=== PATIENT | female | born 1940 | race Hispanic/Latino ===

== ENCOUNTER 2017-02-17 12:33 | Emergency (ER) | payer MEDICARE ==
[2017-02-17] MEDS ORDERED: TORADOL IM ONE (14:20)
[2017-02-17] MEDS ORDERED: TYLENOL PO ONE (14:20)
[2017-02-17] MEDS ORDERED: VALIUM PO ONE (15:00)
--- NOTE | 2017-02-17 15:14 | Emergency Department Report ---
ED General Adult HPI - General Chief complaint: Neck Pain/Injury Stated complaint: NECK PAIN Time Seen by Provider: 02/17/17 14:19 Source: patient Mode of arrival: Ambulatory Limitations: No Limitations - History of Present Illness Initial comments: Patient is a 76 -year-old female past medical history of chronic kidney disease stage III and diabetes who presents with neck pain. Patient's neck pain is so. On the left side of her neck and doesn't radiate it's an achy type of pain nothing makes it better or worse. She states the pain as a 6 out of 10 she states that is constant. She is tried different positions and it occurred a couple hours when she woke up. Patient denies having pain or any shortness of breath. She denies having any nausea or vomiting. She states that she hasn't been able to get much sleep due to this pain. Severity scale (0 -10): 9 - Related Data Home Medications Medication Instructions Recorded Confirmed Last Taken Lisinopril [Zestril] 20 mg PO QDAY 06/02/15 06/02/15 06/01/15 Pregabalin [Lyrica] 75 mg PO QDAY 06/02/15 06/02/15 06/01/15 Previous Rx's Medication Instructions Recorded Last Taken Type Cyclobenzaprine [Flexeril] 10 mg PO TID PRN #14 tablet 06/02/15 Unknown Rx HYDROcodone/APAP 5-325 [[place] 1 - 2 each PO Q6HR PRN #14 tablet 06/02/15 Unknown Rx 5/325] Ibuprofen [Motrin 800 MG tab] 800 mg PO Q8HR PRN #20 tablet 06/02/15 Unknown Rx Allergies Allergy/AdvReac Type Severity Reaction Status Date / Time No Known Allergies Allergy Unverified 06/02/15 09:43 ED Review of Systems ROS: Stated complaint: NECK PAIN Other details as noted in HPI Constitutional: denies: chills, fever Eyes: denies: eye pain, eye discharge, vision change ENT: denies: ear pain, throat pain Respiratory: denies: cough, shortness of breath, wheezing Cardiovascular: denies: chest pain, palpitations Endocrine: no symptoms reported Gastrointestinal: denies: abdominal pain, nausea, diarrhea Genitourinary: denies: urgency, dysuria, discharge Musculoskeletal: other (cervicalgia). denies: back pain, joint swelling, arthralgia Skin: denies: rash, lesions Neurological: denies: headache, weakness, paresthesias Psychiatric: denies: anxiety, depression Hematological/Lymphatic: denies: easy bleeding, easy bruising ED Past Medical Hx - Past Medical History Previous Medical History?: Yes Hx Hypertension: Yes Hx Diabetes: Yes Hx Renal Disease: Yes (STAGE 3) - Surgical History Past Surgical History?: Yes Additional Surgical History: HYSTERECTOMY - Social History Smoking Status: Never Smoker Substance Use Type: None - Medications Home Medications: Home Medications Medication Instructions Recorded Confirmed Last Taken Type Cyclobenzaprine [Flexeril] 10 mg PO TID PRN #14 tablet 06/02/15 Unknown Rx HYDROcodone/APAP 5-325 [[place] 1 - 2 each PO Q6HR PRN #14 tablet 06/02/15 Unknown Rx 5/325] Ibuprofen [Motrin 800 MG tab] 800 mg PO Q8HR PRN #20 tablet 06/02/15 Unknown Rx Lisinopril [Zestril] 20 mg PO QDAY 06/02/15 06/02/15 06/01/15 History Pregabalin [Lyrica] 75 mg PO QDAY 06/02/15 06/02/15 06/01/15 History ED Physical Exam - General Limitations: No Limitations General appearance: alert, in no apparent distress - Head Head exam: Present: atraumatic, normocephalic - Eye Eye exam: Present: normal appearance - ENT ENT exam: Present: mucous membranes moist - Neck Neck exam: Present: tenderness (paraspinal tenderness) - Respiratory Respiratory exam: Present: normal lung sounds bilaterally. Absent: respiratory distress - Cardiovascular Cardiovascular Exam: Present: regular rate, normal rhythm. Absent: systolic murmur, diastolic murmur, rubs, gallop - GI/Abdominal GI/Abdominal exam: Present: soft, normal bowel sounds - Extremities Exam Extremities exam: Present: normal inspection - Back Exam Back exam: Present: normal inspection - Neurological Exam Neurological exam: Present: alert, oriented X3 - Psychiatric Psychiatric exam: Present: normal affect, normal mood - Skin Skin exam: Present: warm, dry, intact, normal color. Absent: rash ED Course Vital Signs 02/17/17 13:02 Temperature 99.1 F Pulse Rate 90 Respiratory 18 Rate Blood Pressure 153/77 O2 Sat by Pulse 100 Oximetry ED Medical Decision Making - EKG Data -: EKG Interpreted by Me - EKG Data 02/17/17 15:10 EKG shows sinus rhythm normal axis minimal ST depression in lateral leads no ST segment elevation. 02/17/17 15:18 - Medical Decision Making Cdx: Cervicalgia ddx: Cervical strain, trapezius muscle strain I'll get EKG and oral pain medication. I will give patient a low dose of toradol and some po valium. Patient was brought in by her daughter patient can be discharged and she can follow up with her primary care provider physician patient agrees with plan. Additional verbal discharge instructions were given. Critical care attestation.: If time is entered above; I have spent that time in minutes in the direct care of this critically ill patient, excluding procedure time. ED Disposition Clinical Impression: Cervicalgia Disposition: DC-01 TO HOME OR SELFCARE Is pt being admited?: No Does the pt Need Aspirin: No Condition: Stable Instructions: Cervical Sprain (ED) Referrals: NABIL RAMIREZ MD [Staff Physician] - 3-5 Days
[2017-02-17 15:29] VITALS: BP 132/72
== END 2017-02-17 15:28 | disposition home or self-care (01) ==
LOC: ED 12:33
DX: M54.2 Cervicalgia (principal); E11.22 Type 2 diabetes mellitus with diabetic chronic kidney disease; I12.9 Hypertensive chronic kidney disease with stage 1 through stage 4 chronic kidney disease, or unspecified chronic kidney disease; N18.3 Chronic kidney disease, stage 3 (moderate)
CPT/HCPCS: 93005; 93010; 96372; 99282; J1885

== ENCOUNTER 2019-08-28 13:36 | Emergency (ER) | payer MEDICARE ==
[2019-08-28 13:41] VITALS: BP 200/77
--- NOTE | 2019-08-28 14:19 | XRay Report ---
RIGHT HAND 4 VIEWS INDICATION / CLINICAL INFORMATION: Right hand pain/injury after trying to catch a falling mirror. COMPARISON: None available. FINDINGS: BONES and JOINT(S): No acute fracture or subluxation. Generalized osteopenia/osteoporosis is noted. M oderate to severe osteoarthritis is seen along all of the DIP joints and the PIP joint of the middle finger. Mild to moderate osteophyte arthritis is seen at the interphalangeal joint of the thumb, the second MCP joint, at the first CMC joint and at the articulation of the scaphoid, trapezium and trape zoid bones. SOFT TISSUES: No acute abnormality. There is multifocal periarticular soft tissue swelling. ADDITIONAL FINDINGS: None. IMPRESSION: 1. No acute findings. 2. Osteoarthritis as above. Signer Name: Rodney Lopez MD Signed: 08/28/2019 2:15 PM Workstation Name: [id number]
--- NOTE | 2019-08-28 14:31 | Emergency Department Report ---
Upper Extremity - [facility] Chief Complaint: Extremity Injury, Upper Stated Complaint: RT SIDE PAIN/INJURY Time Seen by Provider: 08/28/19 14:25 Other History: 79-year-old female presents to the emergency room complaining of right hand injury from a piece of furniture that she caught while falling. Patient did not fall but furniture attempted. Patient states that she has been out of her high blood pressure medicine which is lisinopril 20 mg daily. Patient is taken nothing for pain management. ED Review of Systems ROS: Stated complaint: RT SIDE PAIN/INJURY Other details as noted in HPI ED Past Medical Hx - Past Medical History Previous Medical History?: Yes Hx Hypertension: Yes Hx Diabetes: Yes Hx Renal Disease: Yes (STAGE 3) - Surgical History Past Surgical History?: Yes Additional Surgical History: HYSTERECTOMY - Social History Smoking Status: Never Smoker Substance Use Type: None - Medications Home Medications: Home Medications Medication Instructions Recorded Confirmed Last Taken Type Cyclobenzaprine [Flexeril] 10 mg PO TID PRN #14 tablet 06/02/15 Unknown Rx HYDROcodone/APAP 5-325 [[place] 1 - 2 each PO Q6HR PRN #14 tablet 06/02/15 Unknown Rx 5/325] Ibuprofen [Motrin 800 MG tab] 800 mg PO Q8HR PRN #20 tablet 06/02/15 Unknown Rx Pregabalin [Lyrica] 75 mg PO QDAY 06/02/15 06/02/15 06/01/15 History lisinopriL [Zestril TAB] 20 mg PO QDAY 30 Days #30 tab 08/28/19 Unknown Rx Upper Extremity Exam - Exam General: Vital signs noted. No distress. Alert and acting appropriately. Head and Torso: No HEENT Abnormality, No Neck Tenderness, No Chest/Lungs Abnormality, No Abdominal Tenderness, No Back Tenderness Shoulder Exam: Yes Normal Range of Motion in Shoulder, No Shoulder Tenderness, No Clavicle Tenderness, No Shoulder Deformity, No AC Joint Tenderness Arm Exam: No Arm/Humerus Tenderness, No Arm Deformity Forearm: No Forearm Tenderness, No Forearm Deformity, No Pain with Pronation, No Pain with Supination Wrist: Yes Normal ROM in Wrist, No Wrist Tenderness, No Wrist Deformity, No Snuffbox Tenderness, No Pain with Axial Thumb Compression Hand: Yes Hand Tenderness, No Hand Deformity, No Digit Tenderness, No Normal ROM in Digit(s), No Digit(s) Deformity CMS Exam: No Broken Skin, No Normal Distal Pulses, No Normal Capillary Refill, No Normal Distal Sensation ED Course Vital Signs 08/28/19 13:40 Temperature 98.3 F Pulse Rate 90 Respiratory 16 Rate Blood Pressure 200/77 [Right] O2 Sat by Pulse 96 Oximetry ED Medical Decision Making - Radiology Data Radiology results: report reviewed Patient: ESTRELLITA AGUILAR MR#: [id number] : 1940 Acct:[id number] Age/Sex: 79 / F ADM Date: 08/28/19 Loc: ED Attending Dr: Ordering Physician: ABDOUL BUNCH MD Date of Service: 08/28/19 Procedure(s): XR hand 3+V RT Accession Number(s): [id number] cc: ED MD JULIO C Fluoro Time In Minutes: RIGHT HAND 4 VIEWS INDICATION / CLINICAL INFORMATION: Right hand pain/injury after trying to catch a falling mirror. COMPARISON: None available. FINDINGS: BONES and JOINT(S): No acute fracture or subluxation. Generalized oste openia/osteoporosis is noted. Moderate to severe osteoarthritis is seen along all of the DIP joints and the PIP joint of the middle finger. Mild to moderate osteophyte arthritis is seen at the inte rphalangeal joint of the thumb, the second MCP joint, at the first CMC joint and at the articulation of the scaphoid, trapezium and trapezoid bones. SOFT TISSUES: No acute abnormality. There is multifocal periarticular soft tissue swelling. ADDITIONAL FINDINGS: None. IMPRESSION: 1. No acute findings. 2. Osteoarthritis as above. Signer Name: Rodney Lopez MD Signed: 08/28/2019 2:15 PM Workstation Name: [id number] Transcribed By: KENDELL Dictated By: Rodney Lopez MD Electronically Authenticated By: Rodney Lopez MD Signed Date/Time: 08/28/19 141 DD/ 141 TD/TT: - Medical Decision Making 79-year-old female presents to the emergency room complaining of right hand injury from a piece of furniture that she caught while falling. Patient did not fall but furniture attempted. Patient states that she has been out of her high blood pressure medicine which is lisinopril 20 mg daily. Patient is taken nothing for pain management. X-ray is negative for any acute findings shows mild/moderate to severe arthritis. Patient be given a prescription for hypertension lisinopril 20 mg p.o. as she has ran out of her medication. Patient is recommended to take [id number] acetaminophen 500 mg every 6-8 hours as needed for pain management. Patient be placed in a thumb spica for her sprained hand and thumb. Critical care attestation.: If time is entered above; I have spent that time in minutes in the direct care of this critically ill patient, excluding procedure time. ED Disposition Clinical Impression: Sprain of hand, thumb, right Qualifiers: Encounter type: initial encounter Sprain of finger site: unspecified site Qualified Code(s): S63.601A - Unspecified sprain of right thumb, initial encounter HTN (hypertension) Qualifiers: Hypertension type: unspecified Qualified Code(s): I10 - Essential (primary) hypertension Disposition: TO HOME OR SELFCARE Is pt being admited?: No Does the pt Need Aspirin: No Condition: Stable Instructions: Finger Sprain (ED), Hypertension (ED) Additional Instructions: X-ray of right hand is negative for any acute fractures or dislocations. It does show moderate to severe arthritis. Please wear the splint as needed for comfort. Take [id number] Tylenol extra strength every 6-8 hours. Please take your blood pressure medication as prescribed. Prescriptions: lisinopriL [Zestril TAB] 20 mg PO QDAY 30 Days #30 tab Referrals: ANYA ESCOTO MD [Staff Physician] - 3-5 Days
== END 2019-08-28 15:06 | disposition home or self-care (01) ==
LOC: ED 13:36
DX: S63.601A Unspecified sprain of right thumb, initial encounter (principal); I10 Essential (primary) hypertension; E11.9 Type 2 diabetes mellitus without complications; Z87.448 Personal history of other diseases of urinary system; Z90.710 Acquired absence of both cervix and uterus; Z79.1 Long term (current) use of non-steroidal anti-inflammatories (NSAID); Z79.899 Other long term (current) drug therapy; W19.XXXA Unspecified fall, initial encounter; Y93.89 Activity, other specified; Y92.89 Other specified places as the place of occurrence of the external cause; Y99.8 Other external cause status